=== PATIENT | male | born 1960 | race Caucasian/White ===

== ENCOUNTER → 2024-01-29 10:14 | Outpatient (REF) | payer OTHER, SELFPAY | LOC: RAD 10:14 | PROVIDERS: ATTENDING PHYSICIAN Urology; FAMILY PHYSICIAN Physician Assistant Medical | DX: C61 Malignant neoplasm of prostate (principal) | CPT/HCPCS: 74178; 78306; A9503; Q9967 ==

== ENCOUNTER → 2024-02-27 17:00 | Outpatient (REF) | payer OTHER, SELFPAY | LOC: MRI 3T 17:00 | PROVIDERS: ATTENDING PHYSICIAN Radiology Radiation Oncology; FAMILY PHYSICIAN Physician Assistant Medical | DX: C61 Malignant neoplasm of prostate (principal) | CPT/HCPCS: 72197; A9575 ==

== ENCOUNTER → 2024-04-05 11:08 | Outpatient (REF) | payer OTHER, SELFPAY | LOC: PET 11:08 | PROVIDERS: ATTENDING PHYSICIAN Radiology Radiation Oncology | DX: C61 Malignant neoplasm of prostate (principal) | CPT/HCPCS: 78815 ==

== ENCOUNTER → 2024-04-15 06:16 | Day surgery (SDC) | payer OTHER, SELFPAY ==
[2024-04-15 07:48] LABS: Glucose - Point of Care 80 mg/dl (70-99)
== END ==
LOC: GI 06:16
PROVIDERS: ATTENDING PHYSICIAN Internal Medicine; FAMILY PHYSICIAN Physician Assistant Medical
DX: Z12.11 Encounter for screening for malignant neoplasm of colon (principal); K57.30 Diverticulosis of large intestine without perforation or abscess without bleeding; K64.8 Other hemorrhoids; K63.5 Polyp of colon
CPT/HCPCS: 45385; 88305; 82962

== ENCOUNTER 2025-03-13 09:28 | Day surgery (SDC) | payer MEDICARE, OTHER, SELFPAY ==
[2025-03-13 09:59] VITALS: BMI 36.5
[2025-03-13] MEDS: ELIQUIS 5 MG PO (10:22)
[2025-03-13 10:33] LABS: Glucose - Point of Care 77 mg/dl (70-99)
[2025-03-13 11:16] LABS: Glucose - Point of Care 80 mg/dl (70-99)
--- NOTE | 2025-03-13 17:38 | ITS.CL.CARDI ---
Personnel Quality Assurance Auditor - Cardioversion
Cardioversion
Procedure Report:
Date of Procedure: 03/13/25
Procedure: Cardioversion
Indication: Symptomatic atrial fibrillation
Performing Physician: Solange Aburto DO [facility]
Anticoagulation: Eliquis
Antiarrhythmic therapy: Amiodarone
Technique: The patient was brought to the holding area. Signed informed consent was obtained. A time out was called and performed. The patient was anesthetized by the anesthesia service. Anticoagulation status was reviewed and appropriate. R2 pads
were placed anteriorly and posteriorly. A 200 J synchronized biphasic shock followed by a 300 J synchronized biphasic shock restored normal sinus rhythm without significant bradycardia. There were no complications.
Conclusion: Uncomplicated cardioversion from atrial fibrillation to sinus rhythm.
Recommendation: Routine post cardioversion care. Continue buttermilk drier operator anticoagulation.
== END 2025-03-13 11:37 | disposition home or self-care (01) ==
LOC: CATH 09:28
PROVIDERS: ATTENDING PHYSICIAN Internal Medicine Cardiovascular Disease; FAMILY PHYSICIAN Physician Assistant Medical; OTHER PHYSICIAN Internal Medicine Cardiovascular Disease
DX: I48.0 Paroxysmal atrial fibrillation (principal); I11.0 Hypertensive heart disease with heart failure; Z79.01 Long term (current) use of anticoagulants; I50.32 Chronic diastolic (congestive) heart failure; R55 Syncope and collapse; E78.00 Pure hypercholesterolemia, unspecified; Z79.85 Long-term (current) use of injectable non-insulin antidiabetic drugs; Z79.899 Other long term (current) drug therapy; Z79.4 Long term (current) use of insulin; I45.2 Bifascicular block; I44.0 Atrioventricular block, first degree
CPT/HCPCS: 82962; 92960; 93005

== ENCOUNTER → 2025-05-15 12:57 | Outpatient (REF) | payer MEDICARE, OTHER, SELFPAY | LOC: RCS 12:57 | PROVIDERS: ATTENDING PHYSICIAN Physician Assistant Medical; FAMILY PHYSICIAN Physician Assistant Medical | DX: R06.00 Dyspnea, unspecified (principal); I50.32 Chronic diastolic (congestive) heart failure | CPT/HCPCS: 93306 ==